=== PATIENT | male | born 1975 ===

== ENCOUNTER 2021-12-19 19:18 | Emergency (ER) | payer SELFPAY ==
[2021-12-19] MEDS ORDERED: cefTRIAXone 500 MG in Lidocaine 1% 1 ML IM ONE (22:11)
[2021-12-20 00:03] LABS: C. TRACHOMATIS BY PCR NOT DETECTED; N. GONORRHOEAE BY PCR NOT DETECTED
== END 2021-12-19 22:40 | disposition home or self-care (01) ==
LOC: MW.ED 19:18
DX: K40.90 Unilateral inguinal hernia, without obstruction or gangrene, not specified as recurrent (principal); L02.224 Furuncle of groin
CPT/HCPCS: 81001; 87086; 87491; 87591; 96372; 99283; J0696; 87088; 87186